=== PATIENT | male | born 1955 | race African-American/Black ===

== ENCOUNTER 2023-04-27 09:12 | Emergency (ER) | payer OTHER, MEDICAID ==
[~2023-04-27] VITALS: Ht 185.4 cm; Wt 85.0 kg
[2023-04-27 09:21] VITALS: O2SAT 100
[2023-04-27] MEDS ORDERED: ATENOLOL (09:21)
[2023-04-27 10:42] VITALS: BP 139/84; PULSE 85; RESP 20; TEMP 98.6
== END 2023-04-27 10:45 | disposition home or self-care (01) ==
LOC: ER 09:12
DX: S91.319A Laceration without foreign body, unspecified foot, initial encounter (principal); I10 Essential (primary) hypertension; Y08.89XA Assault by other specified means, initial encounter; Y93.89 Activity, other specified; Y92.89 Other specified places as the place of occurrence of the external cause; Y99.8 Other external cause status
CPT/HCPCS: 99283